=== PATIENT | male | born 1930 | race Caucasian/White ===

== ENCOUNTER 2017-02-22 14:04 | Emergency (ER) | payer MEDICARE, OTHER ==
--- NOTE | 2017-02-22 14:56 | EDM.PDOC ---
ED HPI GENERAL MEDICAL PROBLEM - General Chief Complaint: ENT Problem Stated Complaint: Foreign object in ear Time Seen by Provider: 02/22/17 14:35 Source of Information: Reports: Patient, RN Notes Reviewed History Limitations: Reports: No Limitations - History of Present Illness INITIAL COMMENTS - FREE TEXT/NARRATIVE: 87 year old male presents to the ED with complaints of top of his hearing aid lodged in his right ear canal. He says it happened last night and he's been unable to remove it. He has no pain. - Related Data Allergies Allergy/AdvReac Type Severity Reaction Status Date / Time No Known Allergies Allergy Verified 02/22/17 14:33 Past Medical History Cardiovascular History: Reports: Hypertension Genitourinary History: Reports: Prostate Disorder - Past Surgical History Cardiovascular Surgical History: Reports: Coronary Artery Stent Social & Family History - Tobacco Use Smoking Status *Q: Never Smoker ED ROS ENT - Review of Systems Review Of Systems: See Below HEENT: Reports: Other (foreign object in right ear ). Denies: Ear Pain ED EXAM, ENT - Physical Exam Exam: See Below Exam Limited By: No Limitations General Appearance: Alert, WD/WN, No Apparent Distress Ears: Other (Plastic hearing-aid tip at the opening of the ear canal. Easily removed. On re-examinatino after removing the object, I found another hearing- aid tip deeper within his ear canal. I was able to remove this easily. The object did have a small amount of cerumen on it and likely has been there for quite some time. The patient was given the tips after removal. His TM was fully visualized and is pearly quintana with no perforation. Bony landmarks visualized. No canal erythema or swelling. ) Course - Vital Signs Last Recorded V/S: Last Vital Signs Temp 98.2 F 02/22/17 14:33 Pulse 67 02/22/17 14:33 Resp 17 02/22/17 14:33 BP 182/85 H 02/22/17 14:33 Pulse Ox 95 02/22/17 14:33 Departure - Departure Time of Disposition: 14:55 Disposition: Home, Self-Care 01 Condition: Good Clinical Impression: Foreign body in ear Qualifiers: Encounter type: initial encounter Laterality: right Qualified Code(s): T16.1XXA - Foreign body in right ear, initial encounter - Discharge Information Referrals: Sander Blanton MD [Primary Care Provider] - Additional Instructions: Follow-up with your primary care provider if you develop any pain or drainage from your ear Return to ER with any additional concerns
== END 2017-02-22 15:02 | disposition home or self-care (01) ==
LOC: JD.ED 14:04
DX: T16.1XXA Foreign body in right ear, initial encounter (principal)
CPT/HCPCS: 69200; 99281-25; 99283-25